=== PATIENT | female | born 1990 | race Caucasian/White ===

== ENCOUNTER → 2018-04-18 | Outpatient (CLI) | payer MEDICAID ==
[2018-04-18 13:27] LABS: BASO % 0.2 % (0.0-1.0); EOS % 0.4 % (0.0-3.0); HEMATOCRIT 36.6 % (36.0-47.0); HEMOGLOBIN 12.8 g/dl (12.0-15.5); LYMPH # 1.7 10^3/uL (1.5-6.5); LYMPH % 19.3 % (24.0-44.0); MEAN CORPUSCULAR VOLUME 85.9 fl (80.0-96.0); MONO # 0.5 10^3/uL (0.0-0.8); MONO % 5.8 % (0.0-5.0); NEUTROPHILS # 6.7 10^3/uL (1.8-7.7); PLATELET COUNT, AUTOMATED 236 10^3/uL (150-450); RED BLOOD COUNT 4.26 10^6/uL (4.00-5.40)
[2018-04-18 14:17] LABS: HEPATITIS C VIRUS ABY INDEX 0.1 INDEX (<0.8); HIV 1&2 SCREEN CENTAUR NEGATIVE (NEGATIVE); RUBELLA IgG QUALITATIVE IMMUNE (IMMUNE)
[2018-04-18 15:11] LABS: CHLAMYDIA DNA AMPLIFICATION NEGATIVE (NEGATIVE); GC DNA AMPLIFICATION NEGATIVE (NEGATIVE)
== END ==
LOC: M SMT 08:14
PROVIDERS: ATTEND Advanced Practice Midwife
DX: Z34.81 Encounter for supervision of other normal pregnancy, first trimester (principal); Z3A.01 Less than 8 weeks gestation of pregnancy

== ENCOUNTER → 2018-07-09 | Outpatient (CLI) | payer OTHER ==
--- NOTE | 2018-07-10 05:28 | REP ---
Clinical: Anatomical evaluation. Comparison: None. Findings: Examination demonstrates a single live intrauterine in variable presentation. motion is identified by technologist. Placenta is noted posterior and grade grade zero without evidence for placenta previa or abruption. Amniotic fluid volume is normal. Cervix measures 3.6 cm in length and appears closed. No evidence for nuchal cord. Gestational age by LMP 20 weeks 1 day with [facility] 11/25/2018 . Gestational age by current measurements 20 weeks 5 days with [facility] 11/21/2018 . FHR equals 160 beats per minute. BPD 4.8 cm 20 weeks 3-day HC 17.7 cm 20 weeks 1 day AC 16.4 cm 21 weeks 3 days FL 3.4 cm 20 weeks 5 days HL 3.3 cm 20 weeks 6 days HC/AC ratio 1.08 Estimated weight 392 grams ( 80th percentile). Anatomical assessment demonstrates normal structures including cranium, choroid plexus, cavum, cerebellum/posterior fossa, facial features, lungs, four-chamber heart/ventricular outflow tracts, diaphragm, stomach, cord insertion/three-vessel cord, kidneys/bladder, spine, and extremities. Impression: Single live intrauterine in variable presentation demonstrating appropriate interval growth. Anatomical assessment is complete and normal. No gross abnormalities are identified. Electronically Signed by Griffin Lott MD 07/10/2018 05:19 A
== END ==
LOC: M RAD 18:07
PROVIDERS: ATTEND Specialist
DX: Z34.82 Encounter for supervision of other normal pregnancy, second trimester (principal); Z3A.20 20 weeks gestation of pregnancy

== ENCOUNTER → 2018-09-01 | Outpatient (CLI) | payer OTHER ==
[2018-09-01 18:39] LABS: BASO % 0.2 % (0.0-1.0); EOS # 0.1 10^3/uL (0.0-0.50); EOS % 0.5 % (0.0-3.0); HEMATOCRIT 32.8 % (36.0-47.0); HEMOGLOBIN 10.9 g/dl (12.0-15.5); LYMPH # 1.3 10^3/uL (1.5-6.5); LYMPH % 12.1 % (24.0-44.0); MEAN CORPUSCULAR HEMOGLOBIN 29.7 pg (27.0-33.0); MEAN CORPUSCULAR HGB CONC 33.2 g/dl (32.0-36.5); MEAN CORPUSCULAR VOLUME 89.4 fl (80.0-96.0); MONO # 0.7 10^3/uL (0.0-0.8); MONO % 6.7 % (0.0-5.0); NEUTROPHILS # 8.7 10^3/uL (1.8-7.7); NEUTROPHILS % 79.3 % (36.0-66.0); PLATELET COUNT, AUTOMATED 242 10^3/uL (150-450); RED BLOOD COUNT 3.67 10^6/uL (4.00-5.40); WHITE BLOOD COUNT 10.9 10^3/uL (4.0-10.0)
== END ==
LOC: M WUC 13:46
PROVIDERS: ATTEND Specialist
DX: Z34.82 Encounter for supervision of other normal pregnancy, second trimester (principal); Z3A.00 Weeks of gestation of pregnancy not specified

== ENCOUNTER → 2018-09-24 | Outpatient (CLI) | payer OTHER | LOC: M LAB 06:58 | PROVIDERS: ATTEND Obstetrics & Gynecology | DX: Z34.82 Encounter for supervision of other normal pregnancy, second trimester (principal) ==

== ENCOUNTER → 2018-10-10 | Outpatient (REF) | payer OTHER | LOC: M LAB REF 16:47 | PROVIDERS: ATTEND Advanced Practice Midwife | DX: Z34.83 Encounter for supervision of other normal pregnancy, third trimester (principal); Z3A.00 Weeks of gestation of pregnancy not specified ==

== ENCOUNTER → 2018-10-31 | Outpatient (CLI) | payer OTHER ==
[~2018-10-31] MED LIST: PRENTAB9 PO
== END ==
LOC: M SMT 10:04
PROVIDERS: ATTEND Advanced Practice Midwife
DX: Z34.83 Encounter for supervision of other normal pregnancy, third trimester (principal); Z36.89 Encounter for other specified antenatal screening

== ENCOUNTER → 2018-10-31 | Outpatient (REF) | payer OTHER | LOC: M LAB REF 12:56 | PROVIDERS: ATTEND Advanced Practice Midwife | DX: Z34.83 Encounter for supervision of other normal pregnancy, third trimester (principal) ==

== ENCOUNTER 2018-11-08 14:54 | Inpatient (IN) | payer OTHER ==
[~2018-11-08] VITALS: Ht 165.1 cm; Wt 85.9 kg
[2018-11-08] MEDS ORDERED: PRENTAB9 PO (15:12)
[2018-11-08 15:18] VITALS: BP 128/76
[2018-11-08 15:42] VITALS: BP 126/85
[2018-11-08 15:46] LABS: BASO % 0.3 % (0.0-1.0); EOS % 0.3 % (0.0-3.0); HEMATOCRIT 34.5 % (36.0-47.0); HEMOGLOBIN 11.8 g/dl (12.0-15.5); LYMPH # 1.8 10^3/uL (1.5-6.5); LYMPH % 15.4 % (24.0-44.0); MEAN CORPUSCULAR HEMOGLOBIN 29.4 pg (27.0-33.0); MEAN CORPUSCULAR HGB CONC 34.2 g/dl (32.0-36.5); MONO # 1.1 10^3/uL (0.0-0.8); NEUTROPHILS # 8.9 10^3/uL (1.8-7.7); NEUTROPHILS % 74.2 % (36.0-66.0); PLATELET COUNT, AUTOMATED 221 10^3/uL (150-450); RED BLOOD COUNT 4.01 10^6/uL (4.00-5.40); WHITE BLOOD COUNT 11.9 10^3/uL (4.0-10.0)
--- NOTE | 2018-11-08 15:51 | HPEPDOC ---
Obstetrical History & Physical General Date of Admission Nov 08, 2018 at 14:54 History of Present Illness 28 yo at 37 5/7 wks presents with LOF. She began having LOF last night but only had one episode and was unclear if it was urine or fluid. No further leaking. Presented to office today with ? pooling and blood tinged fluid. She re-presented this afternoon with continued leaking and onset of cramps, SSE with +ferning. SVE . Sent to LDR for admission. Ctx becoming more painful now, some additional blood tinged fluid. +FM HCP: [facility] 11/25/18 -h/o depression, no meds -FFN+ 10/10 PNL: O+, antibody neg, RI, RPR nr, Hep B neg, HIV neg, GC/CT neg, GBS neg PMH: depression, seasonal allergies PSH: T&A Meds: PNV NKDA SH: denies e/t/d Dating Final EDC: Nov 25, 2018 Past Medical History Past Obstetrical History : Past Obstetrical History: Multigravida Type of Delivery: Spontaneous Vaginal Del. 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 Past Medical History Medical History depression, seasonal allergies Surgical History: Denies/None Family History Significant Family History: No pertinent family hx Social History Marital Status: Family situation: Spouse/partner home Psychosocial History: No pertinent psych hx * Smoker: non-smoker Allergies Coded Allergies: No Known Drug Allergies (Verified Allergy, Unknown, 11/08/18) Medications Scheduled No.137/Iron/Folic Acd ( Vitamin Tablet) 1 Each Tablet, 1 TAB PO DAILY Physical Examination Physical Examination GENERAL: Alert and oriented times three, breathing through ctx ABDOMEN: Gravid and non-tender to touch. EXTREMITIES: No edema. No clonus. Laboratory Data [facility] Laboratory Tests 2 11/08/18 15:06: Serology Scanned Report Hepatitis B Testing 11/08/18 15:34: CBC/BMP Pertinent Laboratoy Data Blood Type: O+ RBC Antibody Screen: Negative HIV: Negative Hepatitis B: Negative Hepatitis C: Negative Rapid Plasma Reagin: Nonreactive Rubella: Immune Chlamydia/Gonorrhea: Negative Group B Streptococcus: Positive Other Ultrasounds 04/09/2018: [facility] +FH crl 1.18cm cw 7w2d 07/09/2018: [facility]. Placenta posterior, grade 0 without previa or abruption. AFV: normal. Cx: 3.6cm, closed. FHR: 160 bpm. EFW: 392 grams (80%). Anatomical assessment is complete and normal. 10/31/2018: Vertex Vaginal Examination Dilation: 3 cm Effacement: 80% (in office) Assessment Heart Rate (FHR): 135 Variability: Moderate Accelerations: Positive Decelerations: None Tocometer Frequency: regular, every 1-5 min. Assessment/Plan Assessment 28 yo with SROM, in early labor Plan Admit to LDR, labs, IV expectant management, pit prn FWB reassuring GBS neg VILMA CRAIG PGY-3 Nov 08, 2018 15:51
[2018-11-08 16:59] VITALS: BP 115/60
[2018-11-08 17:56] VITALS: BP 127/90
[2018-11-08] MEDS ORDERED: BUTORPHANOL 2 MG/ML INJ (J0595) IV ONE (18:00)
[2018-11-08] MEDS ORDERED: PROMETHAZINE INJ 25 MG/ML VIAL (J2550) IV PRN (18:00)
--- NOTE | 2018-11-08 18:22 | NUR ---
L&D Note: S: feeling more uncomfortable. O: vss, AF cat 1 tracing cx: /-1/forebag A/P: 28yo active labor Reassuring status -Stadol and Phenergan at request Iram Stokes MD
[2018-11-08] MEDS ORDERED: OXYTOCIN 30 UNITS IN 0.9% NaCl 500ML IV BAG (J2590) As Ordered ONE (21:39)
[2018-11-08] MEDS ORDERED: OXYTOCIN DRIP 30 UNITS in APPROPRIATE DILUENT 1 EA IV SCH (21:59)
[2018-11-08] MEDS ORDERED: DIBUCAINE 1% OINTMENT 30GM TOP PRN (22:00)
[2018-11-08] MEDS ORDERED: RHOGAM 300 MCG (1500 IU) INJ (J2790) IM SCH (22:00)
[2018-11-08] MEDS ORDERED: MEASLES,MUMPS,RUBELLA VACCINE INJ (MMR-II) (90707) SC SCH (22:00)
[2018-11-08] MEDS ORDERED: ANUSOL HC CREAM 30GM TOP PRN (22:00)
[2018-11-08] MEDS ORDERED: METHYLERGONOVINE MALEATE 0.2 MG TAB PO PRN (22:00)
[2018-11-08] MEDS ORDERED: DOCUSATE SODIUM 100 MG CAP PO PRN (22:00)
[2018-11-08] MEDS ORDERED: MOM 30ML SUSPENSION UDC PO PRN (22:00)
[2018-11-08] MEDS ORDERED: ACETAMINOPHEN TAB 650MG DOSE (2X325MG) PO PRN (22:00)
[2018-11-08] MEDS ORDERED: IBUPROFEN 600 MG TAB PO PRN (22:00)
--- NOTE | 2018-11-08 22:23 | DN ---
DATE OF PROCEDURE: 11/08/2018 TIME OF : 2143 hours GENDER: Male. SCORES: 9 and 9. WEIGHT: 7 pounds 5 ounces or 3330 grams. LACERATIONS: None. ANESTHESIA: None. ESTIMATED BLOOD LOSS: 300 mL. COUNTS: Five laparotomy sponges accounted prior to and after delivery. DELIVERY NOTE: On November 08, 2018 at 2143 hours, Mrs. Barker, a 28-year-old, 2, now para 2 had a spontaneous vaginal delivery of live born male , scores 9 and 9. Weight was 7 pounds 5 ounces or 3330 grams. Head was delivered occiput anterior (OA) over intact perineum, followed by delivery of shoulders and corpus. Infant was handed to mom with a good cry. Cord was clamped times two, was cut by the father of the baby. Placenta was then drained and delivered grossly intact. A premixed bag of 500 mL of normal saline was bolused along with 30 units of Pitocin until the uterus was firm. On inspection, cervix, vagina and perineum was grossly intact and hemostatic. Mom and baby recovered in stable condition. Couple has decided to name their son CHRISTIE
[2018-11-09 00:15] VITALS: BP 118/58
[2018-11-09] MEDS: IBUPROFEN 800 MG TAB PO PRN ×2 (01:36→12:51)
[2018-11-09 06:00] VITALS: BP 104/61
--- NOTE | 2018-11-09 07:35 | NUR ---
PPD#1 S: Doing well w/o complaints. Decreasing lochia. Pain well controlled. O: vss, AF gen: well appearing abd: soft, nttp, FF@u-2 ext: neg calf tenderness A/P: 28yo s/p NSD recovering in stable condition -cont routine care -d/c plans for tomorrow Iram Stokes MD
[2018-11-09] MEDS: PRENATAL VITAMINS CHEWABLE TABLET PO SCH (07:39)
[2018-11-09] MEDS: ACETAMINOPHEN 500 MG TAB PO PRN ×2 (07:40→18:07)
[2018-11-09 18:10] VITALS: BP 106/62
[2018-11-10 06:27] VITALS: BP 109/59
[2018-11-10] MEDS: PRENATAL VITAMINS CHEWABLE TABLET PO SCH (11:25)
== END 2018-11-10 11:50 | disposition home or self-care (01) | DRG 807 ==
LOC: M LDI 14:54 → M OBS 23:57
PROVIDERS: ADMIT Obstetrics & Gynecology; ATTEND Obstetrics & Gynecology
PROC: 10E0XZZ Delivery of Products of Conception, External Approach (ICD-10-PCS; principal; 2018-11-08)
DX: O80 Encounter for full-term uncomplicated delivery (principal); Z37.0 Single live birth

== ENCOUNTER → 2019-05-07 | Outpatient (REF) | payer OTHER | LOC: M SFHCWAGY 10:44 | PROVIDERS: ATTEND Advanced Practice Midwife | DX: Z12.4 Encounter for screening for malignant neoplasm of cervix (principal) ==

== ENCOUNTER → 2023-11-14 | Outpatient (CLI) | payer OTHER ==
[2023-11-14 14:05] LABS: BASO % 0.3 % (0.0-1.0); EOS # 0.1 10^3/uL (0.0-0.5); HEMATOCRIT 39.5 % (36.0-47.0); HEMOGLOBIN 13.3 g/dl (12.0-15.5); LYMPH # 1.7 10^3/uL (1.5-5.0); LYMPH % 24.8 % (24.0-44.0); MEAN CORPUSCULAR HEMOGLOBIN 29.6 pg (27.0-33.0); MEAN CORPUSCULAR HGB CONC 33.7 g/dl (32.0-36.5); MONO # 0.6 10^3/uL (0.0-0.8); NEUTROPHILS # 4.3 10^3/uL (1.5-8.5); NEUTROPHILS % 64.5 % (36.0-66.0); PLATELET COUNT, AUTOMATED 273 10^3/uL (150-450); RED BLOOD COUNT 4.49 10^6/uL (4.00-5.40); WHITE BLOOD COUNT 6.7 10^3/uL (4.0-10.0)
[2023-11-14 14:24] LABS: HEMOGLOBIN A1c 5.1 % (4.0-6.0)
[2023-11-14 14:35] LABS: PERCENT SATURATION 27.4 % (13.2-45.0)
[2023-11-14 14:37] LABS: FERRITIN 37.4 NG/ML (7.3-270.7); FREE T4 1.12 NG/DL (0.89-1.76); THYROID STIMULATING HORMONE 0.898 uIU/ML (0.55-4.78)
[2023-11-16 14:47] LABS: HPV APTIMA Not Detected (Not Detected)
== END ==
LOC: M PLALAB 12:01
PROVIDERS: ATTEND Nurse Practitioner Family
DX: N92.0 Excessive and frequent menstruation with regular cycle (principal); Z12.4 Encounter for screening for malignant neoplasm of cervix; R63.5 Abnormal weight gain; R87.610 Atypical squamous cells of undetermined significance on cytologic smear of cervix (ASC-US)
CPT/HCPCS: 36415; 82728; 83036; 83550; 84439; 84443; 85025; 85246; 87624; G0123

== ENCOUNTER → 2023-12-05 | Outpatient (CLI) | payer OTHER | LOC: M WHC 10:14 | PROVIDERS: ATTEND Nurse Practitioner Family | DX: N92.0 Excessive and frequent menstruation with regular cycle (principal); N94.10 Unspecified dyspareunia; R10.2 Pelvic and perineal pain; N80.03 Adenomyosis of the uterus; N83.8 Other noninflammatory disorders of ovary, fallopian tube and broad ligament ==

== ENCOUNTER → 2024-01-29 | Outpatient (REF) | payer OTHER | LOC: M SFHCWAGY 17:32 | PROVIDERS: ATTEND Nurse Practitioner Family | DX: Z12.4 Encounter for screening for malignant neoplasm of cervix (principal); R87.615 Unsatisfactory cytologic smear of cervix | CPT/HCPCS: 87624; G0123 ==

== ENCOUNTER → 2024-03-18 | Outpatient (REF) | payer OTHER | LOC: M LAB REF 17:59 | PROVIDERS: ATTEND Obstetrics & Gynecology | DX: N87.0 Mild cervical dysplasia (principal) ==